=== PATIENT | male | born 1955 | race Caucasian/White ===

== ENCOUNTER 2024-03-11 12:47 | Emergency (ER) | payer OTHER ==
[~2024-03-11] VITALS: Ht 165.1 cm; Wt 74.3 kg
[2024-03-11 12:58] VITALS: BP 169/88; PULSE 118; RESP 16; TEMP 98.1; O2SAT 99
[2024-03-11 15:27] LABS: CLARITY URINE CLEAR (CLEAR); COLOR URINE YELLOW (YELLOW); GLUCOSE URINE NEGATIVE (NEGATIVE); KETONES URINE NEGATIVE (NEGATIVE); LEUKOCYTE ESTERASE URINE NEGATIVE (NEGATIVE); NITRITE URINE NEGATIVE (NEGATIVE); OCCULT BLOOD URINE 3+ (NEGATIVE); PH URINE 5.5 (4.5-8.0); PROTEIN URINE NEGATIVE (NEGATIVE); SPECIFIC GRAVITY URINE 1.013 (1.005-1.030); UROBILINOGEN URINE 0.2 E.U./dL (0.2-1.0)
[2024-03-11 15:37] LABS: SQUAMOUS EPITHELIAL CELL URINE RARE /lpf (RARE/1+)
[2024-03-11 15:38] LABS: RBC URINE TNTC /hpf (0-2)
[2024-03-11 15:39] LABS: BACTERIA URINE NONE SEEN; WBC URINE 0-2 /hpf (0-2)
== END 2024-03-11 16:01 | disposition home or self-care (01) ==
LOC: ER 12:47
DX: R33.9 Retention of urine, unspecified (principal)
CPT/HCPCS: 51701; 81003; 99284